=== PATIENT | male | born 1955 | race Caucasian/White ===

== ENCOUNTER 2020-05-14 18:48 | Emergency (ER) | payer OTHER, MEDICARE, SELFPAY ==
[2020-05-14 18:50] VITALS: BP 135/100; PULSE 99; RESP 20; TEMP 36.7; O2SAT 98; BMI 29.8
[2020-05-14 20:55] LABS: MANUAL DIFF FLAG NO
[2020-05-14 20:56] LABS: Basophils Percent Auto 0.3 % (0-2); Eosinophils Absolute Auto 0.2 X10*3/uL (0.0-0.4); Eosinophils Percent Auto 2.6 % (0-4); Hematocrit 46.7 % (42-52); Hemoglobin 16.1 g/dl (14.0-18.0); Imm Gran Abs Auto 0.02 X10*3/uL (0.00-0.03); Imm Gran Pct Auto 0.3 % (0.0-0.4); Lymphocytes Absolute Auto 1.8 X10*3/uL (1.2-4.9); Lymphocytes Percent Auto 26.4 % (20-40); Mean Corpuscular HGB Conc 34.5 g/dl (31.0-36.0); Mean Corpuscular Hemoglobin 31.7 pg (27.0-33.0); Mean Corpuscular Volume 91.9 fL (80-98); Mean Platelet Volume 9.1 fL (9.4-12.4); Monocytes Absolute Auto 0.6 X10*3/uL (0.1-1.2); Monocytes Percent Auto 8.6 % (2-11); Neutrophils Absolute Auto 4.1 X10*3/uL (2.0-8.3); Neutrophils Percent Auto 61.8 % (45-73); Platelet Count 177 X10*3/uL (160-400); Red Blood Count 5.08 X10*6/uL (4.60-5.80); Red Cell Distribution Width 12.8 % (11.0-16.0); White Blood Count 6.6 X10*3/uL (4.8-10.8)
[2020-05-14 21:22] LABS: Alanine Aminotransferase 26 U/L (0-40); Albumin Level 4.3 g/dL (3.5-5.0); Alkaline Phosphatase 69 U/L (39-117); Anion Gap 11 (12-20); Aspartate Amino Transferase 22 U/L (5-37); Bilirubin Direct 0.2 mg/dL (0.0-0.5); Bilirubin Total 0.4 mg/dL (0.0-1.0); Blood Urea Nitrogen 23 mg/dL (9-16); Calcium 9.2 mg/dL (8.4-10.2); Carbon Dioxide 31 mmol/L (22-29); Chloride 104 mmol/L (96-108); Creatinine Clr Calc Pharmacy 85.5; Estimated Glomerular Filt Rate > 60; Glucose Random 105 mg/dL (60-115); Lipase 43 U/L (8-78); Potassium 4.5 mmol/l (3.3-5.1); Sodium 141 mmol/L (135-145); Total Protein 7.1 g/dL (6.5-8.0)
--- NOTE | 2020-05-14 23:56 | ED.ABDPAIN ---
HPI - Abdominal Pain General Chief Complaint: Abdominal Pain Stated Complaint: cat scan per [facility] Time Seen by Provider: 05/14/20 23:56 Source: patient Mode of arrival: ambulatory Limitations: no limitations History of Present Illness HPI narrative: Patient complaining of right groin pain radiating to right lower back for last 3 weeks no nausea no vomiting no diarrhea increase in pain when he eats no abdominal distention no hernia no testicular pain patient had AAA repair 6 years ago and been followed every 6 months and been stable in last visit which was 3 months ago and ultrasound was done at that time. MD elicited complaint: abdominal pain Pertinent past history: none Onset (ago): week(s) (3) Pain Consistency: constant Location: RLQ Severity: mild Quality: dull Radiation: back Exacerbating factors: movement Relieving factors: nothing Associated symptoms: denies other symptoms Related Data Allergies Allergy/AdvReac Type Severity Reaction Status Date / Time acetaminophen [From PERCOCET] Allergy Unknown UNKNOWN Verified 05/14/20 18:55 From PERCOCET Allergy Unknown UNKNOWN Uncoded 02/08/20 16:05 Review of Systems Review of Systems Constitutional : No Weight loss, No Fever, No Chills ENT/Mouth : No sore throat, No Rhinorrhea Eyes: No Eye Pain, No Swelling Cardiovascular : No Chest Pain, no Dyspnea on Exertion, No Orthopnea, No Edema, No Palpitations, no SOB Respiratory : No Cough, No Sputum Gastrointestinal : no Nausea, No Vomiting, No Diarrhea, No abdominal Pain, No Hematochezia, No Melena Genitourinary : No Dysuria, No Urinary Frequency Musculoskeletal : No joint pain, No Myalgias, No Joint Swelling Skin : No Skin Lesions, No rash Neuro : No Weakness, No Numbness, No Dizziness, No Headache Psych : No Anxiety/Panic, No Depression Heme/Lymph: No Bruising, No Lymphadenopathy Endocrine : No Polyuria, No Polydipsia All other systems reviewed and are negative Physical Exam Vital Signs: Vital Signs: Last Vital Signs Temp 98.1 F 05/15/20 00:17 Pulse 84 05/15/20 00:17 Resp 16 05/15/20 00:17 BP 134/86 05/15/20 00:17 Pulse Ox 97 05/15/20 00:17 Body Mass Index 29.8 Appearance: Alert. Oriented X3. No acute distress. Eyes: Pupils equal, round and reactive to light. ENT: Pharynx normal. Neck: Normal inspection. Neck supple. CVS: Normal heart rate and rhythm. Pulses normal. Respiratory: No respiratory distress. Breath sounds normal. Abdomen: Soft and mild tenderness in right groin area no hernia palpable. No pulsatile mass Bowel sounds are present, no mass palpable, no CVA tenderness no vertebral tenderness Genitalia: Normal testicle normal epididymis no mass palpable Skin: Skin warm and dry. Normal skin color. Normal skin turgor. Extremities: No lower extremity edema. Neuro: Oriented X 3. No motor deficit. No sensory deficit. MDM - Abdominal Pain MDM Narrative Medical decision making narrative: Patient with nonspecific right-sided pain for 3 weeks with workup negative likely muscular pain advised patient to follow with PCP Differential Diagnosis Differential diagnosis: Likely abdominal pain Medical Records Attestation: I reviewed the patient's medical records. Lab Data Attestation: I reviewed the patient's lab results. Result diagrams: 05/14/20 20:48 05/14/20 20:48 Labs: Lab Results 05/14/20 05/14/20 05/14/20 Range/Units 20:48 20:48 20:48 WBC 6.6 (4.8-10.8) X10*3/uL RBC 5.08 (4.60-5.80) X10*6/uL Hgb 16.1 (14.0-18.0) g/dl Hct 46.7 (42-52) % MCV 91.9 (80-98) fL MCH 31.7 (27.0-33.0) pg MCHC 34.5 (31.0-36.0) g/dl RDW 12.8 (11.0-16.0) % Plt Count 177 (160-400) X10*3/uL MPV 9.1 L (9.4-12.4) fL Immature Gran % (Auto) 0.3 (0.0-0.4) % Neut % (Auto) 61.8 (45-73) % Lymph % (Auto) 26.4 (20-40) % [place] % (Auto) 8.6 (2-11) % Eos % (Auto) 2.6 (0-4) % Baso % (Auto) 0.3 (0-2) % Lymph # (Auto) 1.8 (1.2-4.9) X10*3/uL [place] # (Auto) 0.6 (0.1-1.2) X10*3/uL Eos # (Auto) 0.2 (0.0-0.4) X10*3/uL Baso # (Auto) 0.0 (0.0-0.2) X10*3/uL Abs Immat Gran (auto) 0.02 (0.00-0.03) X10*3/uL Absolute Neuts (auto) 4.1 (2.0-8.3) X10*3/uL Absolute Nucleated RBC 0.000 (0.0-0.012) X10*3/uL Nucleated RBC % (auto) 0.0 (0.0-0.2) /100WBC Hold Purple Top Hold Blue Top SEE NOTE Sodium 141 (135-145) mmol/L Potassium 4.5 (3.3-5.1) mmol/l Chloride 104 (96-108) mmol/L Carbon Dioxide 31 H (22-29) mmol/L Anion Gap 11 L (12-20) BUN 23 H (9-16) mg/dL Creatinine 1.16 (0.5-1.4) mg/dL Estim Creat Clear Calc 85.5 Estimated GFR > 60 Random Glucose 105 (60-115) mg/dL Calcium 9.2 (8.4-10.2) mg/dL Total Bilirubin 0.4 (0.0-1.0) mg/dL Direct Bilirubin 0.2 (0.0-0.5) mg/dL AST 22 (5-37) U/L ALT 26 (0-40) U/L Alkaline Phosphatase 69 (39-117) U/L Total Protein 7.1 (6.5-8.0) g/dL Albumin 4.3 (3.5-5.0) g/dL Lipase 43 (8-78) U/L 05/14/ Range/Units 20:48 WBC (4.8-10.8) X10*3/uL RBC (4.60-5.80) X10*6/uL Hgb (14.0-18.0) g/dl Hct (42-52) % MCV (80-98) fL MCH (27.0-33.0) pg MCHC (31.0-36.0) g/dl RDW (11.0-16.0) % Plt Count (160-400) X10*3/uL MPV (9.4-12.4) fL Immature Gran % (Auto) (0.0-0.4) % Neut % (Auto) (45-73) % Lymph % (Auto) (20-40) % [place] % (Auto) (2-11) % Eos % (Auto) (0-4) % Baso % (Auto) (0-2) % Lymph # (Auto) (1.2-4.9) X10*3/uL [place] # (Auto) (0.1-1.2) X10*3/uL Eos # (Auto) (0.0-0.4) X10*3/uL Baso # (Auto) (0.0-0.2) X10*3/uL Abs Immat Gran (auto) (0.00-0.03) X10*3/uL Absolute Neuts (auto) (2.0-8.3) X10*3/uL Absolute Nucleated RBC (0.0-0.012) X10*3/uL Nucleated RBC % (auto) (0.0-0.2) /100WBC Hold Purple Top SEE NOTE Hold Blue Top Sodium (135-145) mmol/L Potassium (3.3-5.1) mmol/l Chloride (96-108) mmol/L Carbon Dioxide (22-29) mmol/L Anion Gap (12-20) BUN (9-16) mg/dL Creatinine (0.5-1.4) mg/dL Estim Creat Clear Calc Estimated GFR Random Glucose (60-115) mg/dL Calcium (8.4-10.2) mg/dL Total Bilirubin (0.0-1.0) mg/dL Direct Bilirubin (0.0-0.5) mg/dL AST (5-37) U/L ALT (0-40) U/L Alkaline Phosphatase (39-117) U/L Total Protein (6.5-8.0) g/dL Albumin (3.5-5.0) g/dL Lipase (8-78) U/L Discharge Plan Discharge Clinical Impression: Abdominal pain Patient Disposition: Home, Self-Care Instructions: Abdominal Pain (ED) Additional Instructions: You have nonspecific muscular pain Take Tylenol/ibuprofen for pain Follow-up with your PCP [facility] Past Medical History Medical History AAA (abdominal aortic aneurysm) Social History Social History Advance Directives: No Advance Directives Information Provided: No
--- NOTE | 2020-05-15 00:01 | CT_ITS ---
EXAMINATION: CT ABDOMEN AND PELVIS WITHOUT CONTRAST CLINICAL INFORMATION: Right-sided pain. COMPARISON: None. TECHNIQUE: Contiguous axial thin section helical images of the abdomen and pelvis were performed without oral or IV contrast. The data set was reformatted in the coronal and sagittal planes and reviewed on an independent workstation. DLP: 789 mGy-cm. FINDINGS: The visualized lung bases are clear. The visualized portions of the heart are unremarkable. The liver is of normal size and attenuation without focal lesions nor intrahepatic biliary ductal dilation. A normal gallbladder is identified. There is no wall thickening or discernible pericholecystic fluid. The spleen, pancreas, adrenal glands are unremarkable. Both kidneys are of normal size and attenuation without hydronephrosis or nephrolithiasis. There is no abdominal aortic aneurysm present measuring 4 cm in greatest sagittal AP dimension. In aortobiiliac stent is in place. No para-aortic mass lesions or fluid collections are identified. There is no abdominal free fluid. There is neither mesenteric nor retroperitoneal lymphadenopathy. There is scattered sigmoid diverticula without evidence of diverticulitis; otherwise, unremarkable unopacified loops of small and large bowel are identified. There is no pelvic free fluid. The urinary bladder is unremarkable. There is neither pelvic nor inguinal lymphadenopathy. Bone windows: Neither sclerotic nor lytic bone lesions are identified. CT/CT abdomen pelvis wo con IMPRESSION: Neither hydronephrosis nor nephrolithiasis. No evidence for acute abdominal or pelvic inflammatory or infectious processes. Infrarenal abdominal aortic aneurysm with intact aortobiiliac stent. Mild manifestations of sigmoid diverticulosis without evidence of diverticulitis. Automated exposure control (Care Dose) Adjustment of the mA and/or kv according to patient size (this includes techniques or standardized protocols for targeted exams where dose is matched to indication / reason for exam; i.e. extremities or head).
[2020-05-15 00:17] VITALS: BP 134/86; PULSE 84; RESP 16; TEMP 36.7; O2SAT 97
== END 2020-05-15 01:16 | disposition home or self-care (01) ==
PROVIDERS: Emergency Provider Internal Medicine; PCP Physician Assistant Medical
DX: R10.31 Right lower quadrant pain (principal); N50.812 Left testicular pain; N50.811 Right testicular pain; M54.5 Low back pain
CPT/HCPCS: 36415; 74176; 80053; 80076; 82248; 83690; 85025; 99284

== ENCOUNTER 2020-10-30 07:10 | Day surgery (SDC) | payer OTHER, SELFPAY ==
--- NOTE | 2020-10-28 11:04 | HO.ANESPROP2 ---
Documented by User: Jennifer Samsney 10/28/20 11:10 HPI - Anesthesia Eval Consult details Narrative: 65yo M for Colonoscopy Eliquis for afib/flutter Med[employer] ICD in situ d/t brugada syndrome [facility] Past Medical History Medical History AAA (abdominal aortic aneurysm) Elevated cholesterol History of atrial fibrillation History of placement of internal cardiac defibrillator HTN (hypertension) Hx of carotid artery stenosis Sleep apnea Surgical History Surgical History H/O colonoscopy Social History Social History Patient Tobacco Use Status: Former Tobacco user Quit Date: 2005 Use of substances other than those prescribed or required for medical reasons: Yes Substance Use Type Other:: CBD cream Substance Use Frequency: Daily Are you DNR?: No Advance Directives: No Advance Directives Information Provided: Yes Meds Allergies Allergy/AdvReac Type Severity Reaction Status Date / Time oxycodone Allergy Severe Anaphylaxis Verified 10/24/20 14:15 Home Medications Medication Instructions Recorded Confirmed Last Taken Type apixaban [Eliquis] 5 mg PO BID 10/24/20 10/24/20 10/26/20 History aspirin [Aspirin Low-Strength] 81 mg PO DAILY 10/24/20 10/24/20 10/26/20 History metoprolol succinate 50 mg PO DAILY 10/24/20 10/24/20 10/30/20 History rosuvastatin 1 tab PO DAILY 10/24/20 10/24/20 Unknown History Exam Exam Date and Time: October 28, 2020 1104 Narrative Narrative: Per vascular note 08/2020 Carotid stent looks excellent, widely patent, no flow disturbance. Aneurysm sac is stable at 4.3 x 4.5 cm with no endoleak and patent limbs. ICD Interr 08/2020 (report on chart) Normal lead and device function. AT/AF [place] is 100%. No VF/VT. No shocks Documented by User: Kelly Ty 10/30/20 09:08 [facility] Past Medical History Medical History AAA (abdominal aortic aneurysm) Elevated cholesterol History of atrial fibrillation History of placement of internal cardiac defibrillator HTN (hypertension) Hx of carotid artery stenosis Sleep apnea Surgical History Surgical History H/O colonoscopy Social History Social History Patient Tobacco Use Status: Former Tobacco user Quit Date: 2005 Use of substances other than those prescribed or required for medical reasons: Yes Substance Use Type Other:: CBD cream Substance Use Frequency: Daily Are you DNR?: No Advance Directives: No Advance Directives Information Provided: Yes Meds Allergies Allergy/AdvReac Type Severity Reaction Status Date / Time oxycodone Allergy Severe Anaphylaxis Verified 10/24/20 14:15 Home Medications Medication Instructions Recorded Confirmed Last Taken Type apixaban [Eliquis] 5 mg PO BID 10/24/20 10/24/20 10/26/20 History aspirin [Aspirin Low-Strength] 81 mg PO DAILY 10/24/20 10/24/20 10/26/20 History metoprolol succinate 50 mg PO DAILY 10/24/20 10/24/20 10/30/20 History rosuvastatin 1 tab PO DAILY 10/24/20 10/24/20 Unknown History Exam Airway Mallampati Class: II (Edentulous) TM Dist: >3cm Neck ROM: Full Denture: Upper and Lower Loose/Missing/Broken Teeth: Yes, Upper and Lower Heart: RRR Lungs: CTA Assessment and Plan Assessment Anesthesia Assessment: Anesthesia Plan Discussed and Chart Reviewed Final Anesthetic Review NPO: Yes Final Preanesthetic Review: Meds/Allgs Chart Reviewed, Consent Obtained/Reviewed and Anes Risks/Benef Reviewed Patient Risk: Intermediate Procedure Risk: Low Anesthetic Plan Anesthetic Plan: MAC: Disposition: Standard PACU
[2020-10-30 07:50] VITALS: BP 131/90; PULSE 96; RESP 18; TEMP 36.1; O2SAT 95; BMI 31.4
[2020-10-30] MEDS: Lactated Ringers 1,000 ML 100 ML IVCONT (08:02)
[2020-10-30 09:42] VITALS: BP 84/52; PULSE 85; RESP 18; TEMP 36.2; O2SAT 92
--- NOTE | 2020-10-30 09:46 | PM.OP ---
Brief Operative Note Date of Service: 10/30/20 Pre-op diagnosis: Screening Post-op diagnosis: other (Diverticulosis) Procedure: Colonoscopy to the cecum and TI Surgeon: Enrrique Raymond Anesthesia: MAC Was an Child Caregiver Private Home used for this Procedure?: No Estimated blood loss (mL): 0 Pathology: none sent Condition: stable Disposition: PACU
[2020-10-30 09:47] VITALS: BP 92/44; PULSE 70; RESP 18; O2SAT 95
[2020-10-30 09:57] VITALS: BP 104/70; PULSE 76; RESP 18; O2SAT 95
[2020-10-30 10:20] VITALS: BP 108/76; PULSE 68; RESP 18; TEMP 36.2; O2SAT 96
--- NOTE | 2020-10-30 10:38 | OP_ITS ---
SURGEON: Enrrique Raymond MD INDICATIONS: The patient presents for evaluation of colorectal cancer screening. Full consent obtained from him for this, including risks of bleeding and perforation. PREOPERATIVE DIAGNOSIS: Colorectal cancer screening. POSTOPERATIVE DIAGNOSIS: Colorectal cancer screening, sigmoid diverticulosis, and internal hemorrhoids. PROCEDURE PERFORMED: Colonoscopy to the cecum and terminal ileum. ESTIMATED BLOOD LOSS: COMPLICATIONS: ANESTHESIA: Medication used, monitored anesthesia care. ASSISTANTS: SPECIMENS: DESCRIPTION OF PROCEDURE: The patient was placed in the left lateral decubitus position. The digital rectal exam revealed no abnormalities. The Olympus video pediatric colonoscope was entered into the rectum and advanced to the cecum with the assistance of abdominal wall pressure. Once in the cecum, I did identify normal-appearing cecal pouch with appendiceal orifice and a normal-appearing ileocecal valve. The terminal ileum was cannulated and appeared normal. The scope was withdrawn back in the colon. The entire cecum and ileocecal valve appeared normal. The scope was slowly withdrawn assessing all mucosal surfaces carefully. Preparation was excellent. I did not visualize any sign of polyps, colitis, or angiodysplasia. There was a mild amount of sigmoid diverticulosis. In the rectum, scope was retroflexed visualizing small internal hemorrhoids, but no other pathology. The rectal mucosa appeared normal. Scope was straightened and withdrawn from the patient. He tolerated the procedure well and was returned to recovery area in stable condition. IMPRESSION: 1. Sigmoid diverticulosis. 2. Internal hemorrhoids. PLAN: Given the negative exam but his family history of his mother having of colon cancer in her early 70s, I would recommend a followup colonoscopy in 5 years for further screening. He will otherwise see me on a p.r.n. basis. MD MILLY Cavazos/PATO / [phone]
== END 2020-10-30 11:18 | disposition home or self-care (01) ==
PROVIDERS: PCP Physician Assistant Medical; Visit Provider Internal Medicine
PROC: 0DJD8ZZ Inspection of Lower Intestinal Tract, Via Natural or Artificial Opening Endoscopic (ICD-10-PCS; CPT 45378; principal; 2020-10-30 08:20)
DX: Z12.11 Encounter for screening for malignant neoplasm of colon (principal); K57.30 Diverticulosis of large intestine without perforation or abscess without bleeding; K64.8 Other hemorrhoids; K59.00 Constipation, unspecified; I10 Essential (primary) hypertension; I48.91 Unspecified atrial fibrillation; Z80.0 Family history of malignant neoplasm of digestive organs; Z79.01 Long term (current) use of anticoagulants; Z79.82 Long term (current) use of aspirin; Z79.899 Other long term (current) drug therapy
CPT/HCPCS: 45378

== ENCOUNTER 2021-05-18 09:03 | Emergency (ER) | payer MEDICARE, SELFPAY ==
--- NOTE | 2021-05-18 | ECG_ITS ---
Test Reason : CHEST PAIN Blood Pressure : / mmHG Vent. Rate : 089 BPM Atrial Rate : 089 BPM P-R Int : 180 ms QRS Dur : 100 ms QT Int : 338 ms P-R-T Axes : 058 -38 046 degrees QTc Int : 411 ms Normal sinus rhythm Left axis deviation Abnormal ECG When compared with ECG of 18-AUG-2018 23:59, Sinus rhythm has replaced Atrial flutter Referred By: Generic ED Physician Electronically Signed By:Austen Cooney
== END 2021-05-18 16:24 | disposition left against medical advice (07) ==
PROVIDERS: Emergency Provider Emergency Medicine; PCP Physician Assistant Medical
DX: R07.9 Chest pain, unspecified (principal)
CPT/HCPCS: 93005; 99281; 99283

== ENCOUNTER 2023-07-22 11:52 | Emergency (ER) | payer MEDICARE, SELFPAY ==
[2023-07-22 12:59] VITALS: BP 151/79; PULSE 63; RESP 16; TEMP 36.6; O2SAT 94; BMI 29.2
--- NOTE | 2023-07-22 13:01 | ED_ITS ---
HPI - General Adult General Chief complaint: General Medical Stated complaint: Swelling left side of face Time Seen by Provider: 07/22/23 13:17 Source: patient Mode of arrival: ambulatory Limitations: no limitations History of Present Illness HPI narrative: 67-year-old male presents with complaints of slight swelling to the left side of the face around the ear region with mild associated left ear pain, reports this started this morning however has been improving ever since. No overlying skin changes. Denies changes in hearing, tinnitus, headache, vision changes, dizziness, weakness, fevers, chills, chest pain, shortness of breath, sore throat, nausea, vomiting, difficulty swallowing, changes in voice, abdominal pain. No trauma to the ear. No recent travel. Related Data Home Medications Medication Instructions Recorded Confirmed apixaban 5 mg tablet (Eliquis) 5 mg PO BID 10/24/20 10/24/20 aspirin 81 mg tablet,delayed 81 mg PO DAILY 10/24/20 10/24/20 release metoprolol succinate 50 mg capsule 50 mg PO DAILY 10/24/20 10/24/20 sprinkle, ext. release 24 hr rosuvastatin 1 tab PO DAILY 10/24/20 10/24/20 Allergies Allergy/AdvReac Type Severity Reaction Status Date / Time oxycodone Allergy Severe Anaphylaxis Verified 10/24/20 14:15 Review of Systems Review of Systems: Yes all other systems are reviewed and are negative PMFSH Past Medical History Attestation statement: The following information was validated with the patient. Source: old records reviewed and nursing notes reviewed Medical History AAA (abdominal aortic aneurysm) Elevated cholesterol History of atrial fibrillation History of placement of internal cardiac defibrillator HTN (hypertension) Hx of carotid artery stenosis Sleep apnea Surgical History H/O colonoscopy Social History Social History Patient Tobacco Use Status: Former Tobacco user Quit Date: 2005 Advance Directives: No Advance Directives Information Provided: No Physical Exam ED Vital Signs: Vital Signs - 24 hr 07/22/23 12:59 Temperature 97.9 F Pulse Rate 63 Respiratory Rate 16 Blood Pressure 151/79 H Pulse Oximetry 94 Oxygen Delivery Method Room Air BMI result Body Mass Index 29.2 vss Appearance: Alert.? Oriented X3.? No acute distress.? Head: Normocephalic, atraumatic, no step-offs or deformities Eyes: Pupils equal, round and reactive to light.? ENT: Pharynx normal.? Normal tympanic membrane and ear canal bilaterally. No mastoid tenderness. No pain with manipulation of external ear bilaterally. Neck: Normal inspection.? Neck supple.? CVS: Normal heart rate and rhythm.? Pulses normal.? Respiratory: No respiratory distress.? Breath sounds normal.? Abdomen: Soft and nontender.? Skin: Skin warm and dry.? Normal skin color.? Normal skin turgor.?+ slight swelling overlying the left parotid gland with no overlying skin changes, no erythema or warmth, no tenderness to palpation overlying Extremities: No lower extremity edema.? No calf ttp. 5/5 strength to bilateral upper and lower extremities Neuro: Oriented X 3.? No motor deficit.? No sensory deficit. CN 2-12 intact Course Course Course Narrative: This is a rapid medical exam: Additional HPI, ROS, PE not included below will be deferred to primary provider. Patient is a 67-year-old male presenting to the ED with complaint of swelling to left side of face since this morning. Denies dental pain, states has no teeth, has full dentures. Mild L ear pain. Plan: viral swabs Medical Decision Making Medical Decision Making MDM Narrative: 67-year-old male presents with left ear discomfort and slight swelling to left side of face. Started this morning, improving ever since Physical examination slight swelling overlying the left parotid gland with no overlying skin changes, no erythema or warmth, no tenderness to palpation overlying History and physical exam consistent with sialadenitis. This is likely viral/obstruction of the salivary gland. Unlikely bacterial. I do not suspect overlying cellulitis, abscess, mastoiditis, necrotizing infection, David, dental etiology. Signs of threat to airway. Plan discharge with supportive measures educated on hard candy/shower candies. Educated patient on diagnosis and treatment plan, answered all question, patient verbalizes understanding. At this time patient will be discharged home, advised to return with new or worsening symptoms. Educated on worrisome signs and symptoms and when to return. At this time I feel comfortable discharge home. Differential Diagnosis Differential Diagnoses: The differential diagnosis associated with the presentation includes History and physical exam consistent with sialadenitis. This is likely viral/obstruction of the salivary gland. Unlikely bacterial. I do not suspect overlying cellulitis, abscess, mastoiditis, necrotizing infection, David, dental etiology. Signs of threat to airway. Admission/Observation Consideration of admission/observation: Escalation of care including ad mission/observation considered unlikely Tests considered The following testing was considered but not selected: No signs of infection or abscess no need for labs and/or imaging. No signs of threat to airway. Prescription Management I considered prescription management with: Other (Hard candies) Chronic Conditions Patient?s care impacted by: Other (AFib on Eliquis, hypertension, CAD.) Discharge Plan Discharge Clinical Impression: Acute viral sialadenitis Patient Disposition: Home, Self-Care Instructions: Sialoadenitis (ED) Additional Instructions: Take your medications as prescribed. If you were prescribed antibiotics today, it is important that you take your medication to their entirety, do not skip any doses, do not finish them early. Follow-up with your primary care provider this week. Return to the emergency department with new or worsening symptoms. Such as fevers, chills, chest pain, shortness of breath, nausea, vomiting, dizziness, headache, vision changes, lethargy In case of emergency call 911 Please suck on hard candies ( sour candies are better). If you develop overlying skin changes such as redness, swelling or discharge please return. Also return if you develop fevers, chills, difficulty swallowing. Prescriptions: No Action aspirin [Aspirin Low-Strength] 81 mg Tablet,Delayed Release (Dr/Ec) 81 mg PO DAILY Eliquis 5 mg Tablet 5 mg PO BID metoprolol succinate 50 mg Capsule,Sprinkle,Er 24hr 50 mg PO DAILY rosuvastatin 1 tab PO DAILY Referrals: ED Physician,Kike [Emergency Provider] - 2 days Balaji Kim PA [Primary Care Provider] -
[2023-07-22 13:59] LABS: Influenza A PCR NEGATIVE (Negative); Influenza B PCR NEGATIVE (Negative); Resp Syncy Virus RNA Qual PCR NEGATIVE (Negative); SARS COV2 PCR INHOUSE NEGATIVE (Negative)
== END 2023-07-22 13:54 | disposition home or self-care (01) ==
PROVIDERS: Registered Nurse Emergency; Emergency Provider Emergency Medicine; PCP Physician Assistant Medical
DX: K11.21 Acute sialoadenitis (principal); Z11.52 Encounter for screening for COVID-19; Z20.822 Contact with and (suspected) exposure to COVID-19
CPT/HCPCS: 0241U; 99283